=== PATIENT | female | born 1985 | race Caucasian/White ===

== ENCOUNTER → 2016-10-02 | Outpatient (CLI) | payer BC, OTHER ==
--- NOTE | 2016-10-02 15:42 | XR ---
EXAMINATION TYPE: XR sacrum coccyx DATE OF EXAM: 10/02/2016 3:36 PM COMPARISON: NONE HISTORY: Pain Three views are submitted. Sacrum is intact. SI joints are symmetric. Coccyx appears to be intact. Visualized pelvic structures intact. Calcifications in the pelvis appear vascular. Chronic appeari ng deformity of the proximal coccyx noted. IMPRESSION: 1. No acute fracture.
== END | disposition home or self-care (01) ==
LOC: RADXRMAIN 15:19
PROVIDERS: ATTEND Family Medicine
DX: M53.3 Sacrococcygeal disorders, not elsewhere classified (principal)
CPT/HCPCS: 72220